=== PATIENT | male | born 1990 | race African-American/Black ===

== ENCOUNTER 2017-01-14 08:06 | Day surgery (SDC) | payer OTHER ==
[~2017-01-14] VITALS: Ht 175.3 cm; Wt 73.0 kg
[2017-01-14 09:21] VITALS: BP 117/71; PULSE 57; RESP 21; Ht 175.3 cm; Wt 73.0 kg
[2017-01-14 10:36] VITALS: BP 123/71; RESP 18
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
[2017-01-14] MEDS ORDERED: MIDAZOLAM 1 MG/ML 2 ML INJ ONE ×2 (11:49)
[2017-01-14] MEDS ORDERED: FENTAnyl 50 MCG/ML VIAL ONE (11:49)
== END 2017-01-14 11:42 | disposition home or self-care (01) ==
LOC: GIL 08:06
PROVIDERS: ATTEND Internal Medicine Gastroenterology
DX: D12.5 Benign neoplasm of sigmoid colon (principal); K64.8 Other hemorrhoids
CPT/HCPCS: 45385; 88305; J2250; J3010; Z7610

== ENCOUNTER 2017-03-30 21:22 | Emergency (ER) | payer OTHER ==
[~2017-03-30] VITALS: Ht 175.3 cm; Wt 75.0 kg
[2017-03-30 21:34] VITALS: Ht 175.3 cm; Wt 75.0 kg
[2017-03-30 23:28] LABS: ADD SCAN DIFF NO
[2017-03-30 23:30] LABS: BASOPHIL # 0.1 10^3/ul (0.0-0.1); BASOPHILS % 0.9 % (0.0-2.0); EOSINOPHILS # 0.7 10^3/ul (0.0-0.5); EOSINOPHILS % 10.1 % (0.0-7.0); HEMATOCRIT 45.9 % (42.0-52.0); HEMOGLOBIN 15.4 g/dl (14.0-18.0); MEAN CORPUSCULAR HEMOGLOBIN 30.4 pg (29.0-33.0); MEAN CORPUSCULAR HGB CONC 33.6 g/dl (32.0-37.0); MEAN CORPUSCULAR VOLUME 90.5 fl (82.0-101.0); MEAN PLATELET VOLUME 10.4 fl (7.4-10.4); MONOCYTE # 0.6 10^3/ul (0.3-0.9); MONOCYTES % 9.4 % (0.0-11.0); NEUTROPHIL # 2.1 10^3/ul (1.6-7.5); NEUTROPHILS % 32.3 % (39.0-77.0); PLATELET COUNT 338 10^3/UL (140-415); RED BLOOD COUNT 5.07 10^6/ul (4.70-6.10); RED CELL DISTRIBUTION WIDTH 11.4 % (11.5-14.5); WHITE BLOOD COUNT 6.4 10^3/ul (4.8-10.8)
--- NOTE | 2017-03-30 23:34 | RADRPT ---
PROCEDURE: XR Chest. CLINICAL INDICATION: chest pain TECHNIQUE: Single frontal view of the chest. COMPARISON: 06/06/2016. FINDINGS: The cardiomediastinal silhouette is within normal limits. The lungs are clear. No signs of pleural f luid or pneumothorax are seen. The osseous structures and soft tissues are unremarkable. IMPRESSION: No evidence for active cardiopulmonary disease. RPTAT: [facility] Physician Leydi Date Time Electronically viewed and signed by Ami Payton Physician on 03/30/2017 23:34 RS/
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
[2017-03-30 23:51] LABS: ALBUMIN/GLOBULIN RATIO 1.51; BILIRUBIN,INDIRECT 0.4 mg/dl (0-1.1); BILIRUBIN,TOTAL 0.4 mg/dl (0.2-1.3); CREATININE 0.86 mg/dl (0.61-1.24); POTASSIUM 4.5 mmol/L (3.5-5.1); TOTAL PROTEIN 8.3 g/dl (6.1-8.1)
[2017-03-31 00:13] LABS: ADD UMIC NO; URINE BILIRUBIN (Dip) NEGATIVE (NEGATIVE); URINE BLOOD (Dip) NEGATIVE (NEGATIVE); URINE COLOR LT. YELLOW (YELLOW); URINE GLUCOSE (Dip) NEGATIVE (NEGATIVE); URINE KETONES (Dip) NEGATIVE (NEGATIVE); URINE LEUKOCYTE ESTERASE (Dip) NEGATIVE (NEGATIVE); URINE NITRITE (Dip) NEGATIVE (NEGATIVE); URINE TOTAL PROTEIN (Dip) NEGATIVE (NEGATIVE); URINE UROBILINOGEN (Dip) 0.2 E.U./dL (0.1-1.0)
[2017-03-31] MEDS ORDERED: SOD CHLORIDE 0.9% 100 ML ONE (00:20)
[2017-03-31] MEDS ORDERED: IOHEXOL 300MG/ML 150 ML BTL ONE (00:20)
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
[2017-03-31] MEDS ORDERED: CYCL-319 PO (01:04)
[2017-03-31] MEDS ORDERED: IBUP400T22 PO (01:04)
[2017-03-31] MEDS ORDERED: HYDR-906 PO (01:04)
[2017-03-31 01:15] VITALS: BP 120/80; PULSE 65; RESP 18; TEMP 98.2
== END 2017-03-31 01:15 | disposition home or self-care (01) ==
LOC: FTE 21:22
DX: S16.1XXA Strain of muscle, fascia and tendon at neck level, initial encounter (principal); S30.1XXA Contusion of abdominal wall, initial encounter; S20.219A Contusion of unspecified front wall of thorax, initial encounter; V49.40XA Driver injured in collision with unspecified motor vehicles in traffic accident, initial encounter
CPT/HCPCS: 36415; 71010; 72125; 74177; 80053; 81003; 83690; 85025; Q9967; Z7502; Z7610

== ENCOUNTER 2017-10-12 13:32 | Emergency (ER) | payer OTHER ==
[~2017-10-12] VITALS: Ht 175.3 cm; Wt 76.0 kg
[~2017-10-12 13:32] MED LIST: CYCL-319 PO; HYDR-906 PO; IBUP400T22 PO
[2017-10-12 13:42] VITALS: Ht 175.3 cm; Wt 76.0 kg
[2017-10-12] MEDS ORDERED: AZITHROMYCIN 250 MG TAB PO ONE (15:00)
[2017-10-12] MEDS ORDERED: CEFTRIAXONE 250 MG INJ IM ONE (15:00)
[2017-10-12 15:25] LABS: ADD UMIC YES; UR ASCORBIC ACID NEGATIVE (NEGATIVE); UR BILIRUBIN (Dip) NEGATIVE (NEGATIVE); UR BLOOD (Dip) NEGATIVE (NEGATIVE); UR CLARITY CLEAR (CLEAR); UR COLOR YELLOW (YELLOW); UR GLUCOSE (Dip) NEGATIVE (NEGATIVE); UR KETONES (Dip) NEGATIVE (NEGATIVE); UR LEUKOCYTE ESTERASE (Dip) TRACE Leu/ul (NEGATIVE); UR MUCUS FEW /HPF (NONE SEEN); UR NITRITE (Dip) NEGATIVE (NEGATIVE); UR RBC 1 /HPF (0-5); UR SPECIFIC GRAVITY (Dip) 1.023 (1.003-1.030); UR TOTAL PROTEIN (Dip) NEGATIVE (NEGATIVE); UR UROBILINOGEN (Dip) 1+ mg/dL (NEGATIVE)
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
== END 2017-10-12 16:50 | disposition home or self-care (01) ==
LOC: FTE 13:32
DX: A64 Unspecified sexually transmitted disease (principal)
CPT/HCPCS: 81001; 87591; 96372; J0696; Z7502; Z7610

== ENCOUNTER 2018-05-31 02:53 | Emergency (ER) | END 2018-05-31 03:35 | disposition home or self-care (01) ==

== ENCOUNTER 2018-07-25 01:58 | Emergency (ER) | END 2018-07-25 03:15 | disposition home or self-care (01) ==

== ENCOUNTER 2018-09-08 10:04 | Emergency (ER) | END 2018-09-08 11:31 | disposition home or self-care (01) ==

== ENCOUNTER 2018-09-16 21:38 | Emergency (ER) | END 2018-09-16 23:26 | disposition home or self-care (01) ==